=== PATIENT | male | born 1945 | race Caucasian/White ===

== ENCOUNTER 2017-04-22 09:17 | Emergency (ER) | payer OTHER, MEDICARE ==
--- NOTE | 2017-04-22 09:50 | ER Document Report ---
ED Medical Screen (RME) - General Chief Complaint: Neck Pain >24hrs old Stated Complaint: NECK PAIN Time Seen by Provider: 04/22/17 09:40 Notes: 72-year-old male patient sent to the emergency room for evaluation of severe left-sided neck shoulder and arm pain and numbness. Brief exam suggest a cervical radiculopathy. I have greeted and performed a rapid initial assessment of this patient. A comprehensive ED assessment and evaluation of the patient, analysis of test results and completion of the medical decision making process will be conducted by additional ED providers. TRAVEL OUTSIDE OF THE [place] IN LAST 30 DAYS: No - Related Data Allergies/Adverse Reactions: DYLON Inhibitors [Dylon Inhibitors] Allergy (Severe, Verified 05/26/14 16:25) Past Medical History - Social History Chew tobacco use (# tins/day): No Frequency of alcohol use: None Drug Abuse: None - Past Medical History Cardiac Medical History: Reports: Hx Coronary Artery Disease, Hx Hypercholesterolemia, Hx Hypertension, Hx Heart Murmur Denies: Hx Heart Attack Pulmonary Medical History: Reports: Hx Asthma, Hx Sleep Apnea, Hx Tuberculosis Neurological Medical History: Reports: Hx Cerebrovascular Accident - x2, with left sided weakness Endocrine Medical History: Reports: Hx Diabetes Mellitus Type 1, Hx Diabetes Mellitus Type 2 Renal/ Medical History: Reports: Hx Benign Prostatic Hyperplasia. Denies: Hx Peritoneal Dialysis Musculoskeltal Medical History: Reports Hx Arthritis - osteoarthritis, Reports Hx Gout Psychiatric Medical History: Reports: Hx Depression, Hx Post Traumatic Stress Disorder Past Surgical History: Reports: Hx Cholecystectomy, Hx Orthopedic Surgery - lumbar fusion 01-10-2014. Denies: Hx Pacemaker - Immunizations Hx Diphtheria, Pertussis, Tetanus Vaccination: Yes Physical Exam - Vital signs Vitals: Temp Pulse Resp BP Pulse Ox 98.2 F 81 19 125/60 98 04/22/17 09:25 04/22/17 09:25 04/22/17 09:25 04/22/17 09:25 04/22/17 09:25 Course - Vital Signs Vital signs: Temp Pulse Resp BP Pulse Ox 98.2 F 81 19 125/60 98 04/22/17 09:25 04/22/17 09:25 04/22/17 09:25 04/22/17 09:25 04/22/17 09:25
--- NOTE | 2017-04-22 11:01 | RADIOLOGY REPORT (SQ) ---
EXAM DESCRIPTION: MRI CERVICAL SPINE WITHOUT COMPLETED DATE/TIME: 04/22/2017 10:35 am REASON FOR STUDY: LUE radiculopathy COMPARISON: None. TECHNIQUE: Sagittal and Axial imaging includes T1, T2, STIR and gradient echo sequences. LIMITATIONS: None. FINDINGS: ALIGNMENT: 3 mm anterior displacement of C4 on C5 which appears to be due to degenerative changes involving the facet joints. There is some fragmentation of the lower right facet at C4 witho ut edema raising the possibility of old injury. There is no evidence of acute fracture. VERTEBRAE: Intact. BONE MARROW: Normal. No marrow replacement or reactive changes. DISCS: Severe disc space loss at C5-6 with moderate disc space loss at C6-7. At C3-4, there is mild generalized disc bulging with focally greater disc protrusion osteophyte formation posterolaterally o n the left. At C4-5, there is mild generalized disc bulging with a small central disc extrusion and small posterolateral os. At C5-6, there is moderate size broad-based disc extrusion with associated osteophytes most prominently on the right posterolaterally. At C6-7, there is small broad-based disc extrusion most prominently centrally with small osteophytes. At C7-T1, there is minimal posterolate ral disc osteophyte complex. Facet joints: Mild to moderate degenerative changes. HARDWARE: None in the spine. CORD AND BASE OF BRAIN: Normal in size and signal intensity. SOFT TISSUES: No soft tissue masses. C1-C2: No significant spinal stenosis. C2-C3: No significant spinal stenosis or exit foraminal stenosis. C3-C4: No significant spinal stenosis. Severe left neural foraminal narrowing. No significant narro wing on the right. C4-C5: No significant spinal stenosis. Severe narrowing of the upper aspect of the foramina bilatera lly with mild narrowing inferiorly. C5-C6: Mild spinal stenosis on the right. Severe right neural foraminal narrowing. Mild left neural foraminal narrowing. C6-C7: No significant spinal stenosis. Mild bilateral neural foraminal narrowing. C7-T1: No significant spinal stenosis or exit foraminal stenosis. UPPER THORACIC: Incompletely imaged. No significant spinal stenosis or exit foraminal stenosis. OTHER: No other significant finding. IMPRESSION: Multilevel degenerative disc disease and facet disease with mild spinal stenosis at C5-6 and multilevel neural foraminal narrowing as described. TECHNICAL DOCUMENTATION: JOB ID: [id number] [facility] [employer]- All Rights Reserved
[2017-04-22] MEDS ORDERED: DIAZEPAM INJ 10 MG/2 ML DISP.SYRIN IM ONE (11:36)
[2017-04-22] MEDS ORDERED: KETOROLAC TROMETHAMINE INJ/PF 30 MG/1 ML SDV IM ONE (11:36)
[2017-04-22] MEDS ORDERED: DEXAMETHASONE SOD PHOS INJ 10 MG/1 ML VIAL IM ONE (11:36)
--- NOTE | 2017-04-22 11:36 | ER Document Report ---
ED General - General Chief Complaint: Neck Pain >24hrs old Stated Complaint: NECK PAIN Time Seen by Provider: 04/22/17 09:40 Notes: Patient is a 72-year-old male who presents emergency department [facility] with a chief complaint of left neck pain with associated numbness and tingling in his left arm. Patient states that he has a history of multiple strokes as well as diabetes and high blood pressure. Patient states for the past 2 days he has had this neck pain that hurts worse with movement he was tender to touch of the left trapezius. States he has not done anything for it at home. Went to the [facility] to be evaluated and they referred him here for rule out stroke. He denies any weakness, difficulty swallowing, difficulty talking, difficulty breathing, vision changes, headache, gait abnormalities. TRAVEL OUTSIDE OF THE [place] IN LAST 30 DAYS: No - Related Data Allergies/Adverse Reactions: DYLON Inhibitors [Dylon Inhibitors] Allergy (Severe, Verified 05/26/14 16:25) Past Medical History - Social History Smoking Status: Never Smoker Chew tobacco use (# tins/day): No Frequency of alcohol use: None Drug Abuse: None Family History: Reviewed & Not Pertinent Patient has suicidal ideation: No Patient has homicidal ideation: No - Past Medical History Cardiac Medical History: Reports: Hx Coronary Artery Disease, Hx Hypercholesterolemia, Hx Hypertension, Hx Heart Murmur Denies: Hx Heart Attack Pulmonary Medical History: Reports: Hx Asthma, Hx Sleep Apnea, Hx Tuberculosis Neurological Medical History: Reports: Hx Cerebrovascular Accident - x2, with left sided weakness Endocrine Medical History: Reports: Hx Diabetes Mellitus Type 1, Hx Diabetes Mellitus Type 2 Renal/ Medical History: Reports: Hx Benign Prostatic Hyperplasia. Denies: Hx Peritoneal Dialysis Musculoskeltal Medical History: Reports Hx Arthritis - osteoarthritis, Reports Hx Gout Psychiatric Medical History: Reports: Hx Depression, Hx Post Traumatic Stress Disorder Past Surgical History: Reports: Hx Cholecystectomy, Hx Orthopedic Surgery - lumbar fusion 01-10-2014, right knee. Denies: Hx Pacemaker - Immunizations Hx Diphtheria, Pertussis, Tetanus Vaccination: Yes Hx Pneumococcal Vaccination: 01/04/11 Review of Systems - Review of Systems Constitutional: No symptoms reported Cardiovascular: No symptoms reported Respiratory: No symptoms reported Gastrointestinal: No symptoms reported Musculoskeletal: See HPI Neurological/Psychological: See HPI -: Yes All other systems reviewed and negative Physical Exam - Vital signs Vitals: Temp Pulse Resp BP Pulse Ox 98.2 F 81 19 125/60 98 04/22/17 09:25 04/22/17 09:25 04/22/17 09:25 04/22/17 09:25 04/22/17 09:25 - Notes Notes: PHYSICAL EXAM GENERAL: Alert, interacts well. HEAD: Normocephalic, atraumatic. EYES: Pupils equal, round, and reactive to light. Extraocular movements intact. ENT: Oral mucosa moist, tongue midline. NECK: Pain with range of motion worse on the left tenderness to palpation of the left trapezius with pain reproducible to palpation. Supple. Trachea midline. LUNGS: Clear to auscultation bilaterally, no wheezes, rales, or rhonchi. No respiratory distress. HEART: Regular rate and rhythm. No murmurs, gallops, or rubs. EXTREMITIES: Moves all 4 extremities spontaneously. No edema, radial and dorsalis pedis pulses 2/4 bilaterally. No cyanosis. NEUROLOGICAL: Alert and oriented x4. Face symmetric. Tongue protrudes midline. Extraocular motions intact. Pupils are 2 mm and equally reactive. Normal speech, normal gait. 5 out of 5 strength in both the distal and proximal upper and lower extremities bilaterally. Sensation is grossly intact throughout. Finger to nose testing normal. Pronator drift normal. PSYCH: Normal affect, normal mood. SKIN: Warm, dry, normal turgor. No rashes or lesions noted. Course - Re-evaluation Re-evalutation: 04/22/17 13:28 Patient is a 72-year-old male is hemodynamically stable, no acute distress and afebrile. MRI was ordered in triage that shows evidence of severe disc and degenerative disease which is likely causing the tingling in his left upper extremity. Otherwise symptoms are consistent with associated muscle strain. Patient states that his neck feels much better after Valium, Toradol and Decadron. ROM intact with minimal pain. After performing a Medical Screening Examination, I estimate there is LOW risk for CENTRAL CORD SYNDROME, EPIDURAL MASS LESION, SEVERE SPINAL STENOSIS, ARTERIAL DISSECTION, MENINGITIS, or ACUTE CORONARY SYNDROME, thus I consider the discharge disposition reasonable. I have reevaluated this patient multiple times and no significant life threatening changes are noted. The patient and I have discussed the diagnosis and risks, and we agree with discharging home to follow-up on an outpatient basis with the understanding that symptoms and presentations can change. We also discussed returning to the Emergency Department immediately if new or worsening symptoms occur. We have discussed the symptoms which are most concerning (e.g., saddle anesthesia, urinary or bowel incontinence or retention , changing or worsening pain) that necessitate immediate return. - Vital Signs Vital signs: Temp Pulse Resp BP Pulse Ox 98.2 F 81 19 125/60 98 04/22/17 09:25 04/22/17 09:25 04/22/17 09:25 04/22/17 09:25 04/22/17 09:25 - Diagnostic Test Radiology reviewed: Image reviewed, Reports reviewed Discharge - Discharge Clinical Impression: Neck pain on left side Condition: Good Disposition: HOME, SELF-CARE Additional Instructions: Your symptoms today are consistent with a muscle strain that is gotten worse over the past couple of days. Your MRI shows evidence of underlying degenerative changes and disc disease compressing any nerves causing numbness and tingling in her left arm. [facility] you today and associated disc for possible referral for surgery. Please return to the emergency department with any worsening symptoms, weakness , difficulty swallowing, vision changes or any other symptoms worrisome to you Prescriptions: Diazepam [Valium 5 mg Tablet] 5 mg PO QIDP PRN #15 tablet PRN Reason: Referrals: [facility] [place] [Provider Group] - Follow up tomorrow
[2017-04-22 15:51] VITALS: BP 126/55
== END 2017-04-22 13:58 | disposition home or self-care (01) ==
LOC: ER 09:17
DX: M50.322 Other cervical disc degeneration at C5-C6 level (principal); R20.0 Anesthesia of skin; R20.2 Paresthesia of skin; I10 Essential (primary) hypertension; E11.9 Type 2 diabetes mellitus without complications; I25.10 Atherosclerotic heart disease of native coronary artery without angina pectoris; J45.909 Unspecified asthma, uncomplicated; Z86.73 Personal history of transient ischemic attack (TIA), and cerebral infarction without residual deficits; Z88.8 Allergy status to other drugs, medicaments and biological substances
CPT/HCPCS: 99284; 96372; 72141; J3360; J1885; J1100